=== PATIENT | female | born 1960 | race Caucasian/White ===

== ENCOUNTER 2018-01-27 15:29 | Emergency (ER) | payer OTHER ==
[2018-01-27 15:58] VITALS: BP 153/81; PULSE 79; TEMP 98.9; BMI 28.3
--- NOTE | 2018-01-27 16:10 | PDOC ---
History of Present Illness - General Chief Complaint: Pain, Acute Stated Complaint: PELVIC PAIN Time Seen by Provider: 01/27/18 16:09 Past History - Past Medical History Allergies/Adverse Reactions: Allergies Allergy/AdvReac Type Severity Reaction Status Date / Time No Known Allergies Allergy Verified 10/28/14 20:52 Home Medications: Ambulatory Orders Diclofenac Sodium 50 mg PO BID #14 tablet. 01/27/18 CVA: No COPD: No HTN: Yes - Immunization History Immunization Up to Date: Yes - Suicide/Smoking/Psychosocial Hx Smoking History: Never smoked Have you smoked in the past 12 months: No Information on smoking cessation initiated: No Hx Alcohol Use: No Drug/Substance Use Hx: No Substance Use Type: None *Physical Exam - Vital Signs Last Vital Signs Temp Pulse Resp BP Pulse Ox 98.9 F 79 20 153/81 96 01/27/18 15:51 01/27/18 15:51 01/27/18 15:51 01/27/18 15:51 01/27/18 15:51 Medical Decision Making - Medical Decision Making 01/27/18 20:40 I erroneously signed up for this patient who was actually seen in fast track. I never saw this patient, I never did an exam or evaluation on this patient. She was seen by the mid-level provider in fast track. *DC/Admit/Observation/Transfer Diagnosis at time of Disposition: Pelvic pain in female - Discharge Dispostion Disposition: HOME Condition at time of disposition: Stable - Prescriptions Prescriptions: Diclofenac Sodium 50 mg PO BID #14 tablet. - Referrals Referrals: Tutu Garcia MD [Staff Physician] - - Patient Instructions Printed Discharge Instructions: DI for Pelvic Pain Additional Instructions: Please take medications as prescribed to help relieve your pain. Follow up with [facility] by the END OF THIS WEEK. If you develop any fever, chills, vomiting, diarrhea, or any new or worsening symptoms, please return to the ER. Por favor tome medicamentos segn lo recetado para ayudar a aliviar cardenas dolor. Ignacia un seguimiento con cardenas ginecologo antes del FINAL DE ESTA SEMANA. Si desarrolla fiebre, escalofros, vmitos, diarrea o cualquier sntoma nuevo o que empeora, regrese a la nohemi de emergencias. Print Language: SAMOAN - Post Discharge Activity
--- NOTE | 2018-01-27 16:34 | PDOC ---
History of Present Illness - General Chief Complaint: Pain, Acute Stated Complaint: PELVIC PAIN Time Seen by Provider: 01/27/18 16:09 - History of Present Illness Initial Comments: 01/27/18 16:34 CHIEF COMPLAINT: urinary symptoms HISTORY OF PRESENT ILLNESS: 58 yo F with hx of HTN presents to fast track with suprapubic pain and pain with urination. She reports that the pain is a burning pain when she urinates. She denies any vaginal bleeding or cramping. Patient reports that she is taking naproxen without relief. No recent travel or sick contacts. PAST MEDICAL HISTORY: Denies past medical history FAMILY HISTORY: Denies SOCIAL HISTORY: Denies tobacco, alcohol, illicit drug use. SURGICAL HISTORY: Denies ALLERGIES: No known drug allergies REVIEW OF SYSTEMS General/Constitutional: Denies fever or chills. HEENT: Denies change in vision. Denies ear pain or discharge. Denies sore throat. Respiratory: Denies cough, wheezing, or hemoptysis. Gastrointestinal: Denies nausea, vomiting, diarrhea. Genitourinary: Burning with urination, suprapubic pain radiating to L side. Musculoskeletal: Denies joint or muscle swelling or pain. Denies neck or back pain. Skin and breasts: Denies rash or easy bruising. Neurologic: Denies headache, vertigo, loss of consciousness, or loss of sensation. PHYSICAL EXAM General Appearance: Well-appearing, appropriately dressed. No apparent distress , no intoxication. HEENT: EOMI, PERRLA. No conjunctival pallor. No photophobia, scleral icterus. Respiratory/Chest: Lungs CTAB. Cardiovascular: RRR. S1, S2. Gastrointestinal/Abdominal: Normal bowel sounds. Abdomen soft, non-distended. No tenderness or rebound tenderness. No organomegaly, pulsatile mass, guarding , hernia, hepatomegaly, splenomegaly. Musculoskeletal/Extremities: Normal inspection. FROM of all extremities, normal capillary refill. Pelvis Stable. No CVA tenderness. No tenderness to extremities, pedal edema, swelling, erythema or deformity. Integumentary: Appropriate color, dry, warm. No cyanosis, erythema, jaundice or rash Neurologic: trading specialist II-XII intact. Fully oriented, alert. Appropriate mood/affect. Motor strength 5/5. No appreciable EOM palsy, facial droop or sensory deficit. 01/27/18 16:36 Past History - Past Medical History Allergies/Adverse Reactions: Allergies Allergy/AdvReac Type Severity Reaction Status Date / Time No Known Allergies Allergy Verified 10/28/14 20:52 Home Medications: Ambulatory Orders Diclofenac Sodium 50 mg PO BID #14 tablet. 01/27/18 CVA: No COPD: No HTN: Yes - Immunization History Immunization Up to Date: Yes - Suicide/Smoking/Psychosocial Hx Smoking History: Never smoked Have you smoked in the past 12 months: No Information on smoking cessation initiated: No Hx Alcohol Use: No Drug/Substance Use Hx: No Substance Use Type: None *Physical Exam - Vital Signs Last Vital Signs Temp Pulse Resp BP Pulse Ox 98.9 F 79 20 153/81 96 01/27/18 15:51 01/27/18 15:51 01/27/18 15:51 01/27/18 15:51 01/27/18 15:51 Medical Decision Making - Medical Decision Making 01/27/18 16:35 58 yo F with hx of HTN presents to fast track with suprapubic pain and pain with urination. -UA, Ucx -Azo UA negative for UTI. Will order US to eval for stones. Ultrasound negative. NSAIDS, f/u with OBGYN. Advised patient to take medication as prescribed and follow up with OBGYN this week. Advised patient of signs and symptoms for return to ED. Patient verbalized understanding and agrees to plan. *DC/Admit/Observation/Transfer Diagnosis at time of Disposition: Pelvic pain in female - Discharge Dispostion Disposition: HOME Condition at time of disposition: Stable Admit: No - Prescriptions Prescriptions: Diclofenac Sodium 50 mg PO BID #14 tablet. - Referrals Referrals: Tutu Garcia MD [Staff Physician] - - Patient Instructions Printed Discharge Instructions: DI for Pelvic Pain Additional Instructions: Please take medications as prescribed to help relieve your pain. Follow up with [facility] by the END OF THIS WEEK. If you develop any fever, chills, vomiting, diarrhea, or any new or worsening symptoms, please return to the ER. Por favor tome medicamentos segn lo recetado para ayudar a aliviar cardenas dolor. Ignacia un seguimiento con cardenas ginecologo antes del FINAL DE ESTA SEMANA. Si desarrolla fiebre, escalofros, vmitos, diarrea o cualquier sntoma nuevo o que empeora, regrese a la nohemi de emergencias. Print Language: LAO - Post Discharge Activity
[2018-01-27 16:35] LABS: URINE APPEARANCE SLCLOUDY; URINE BILIRUBIN NEGATIVE (<2.0 mg/dL); URINE COLOR YELLOW; URINE GLUCOSE (UA) NEGATIVE (NEGATIVE); URINE KETONE 1+ (NEGATIVE); URINE LEUK ESTERASE NEGATIVE (NEGATIVE); URINE NITRITE NEGATIVE (NEGATIVE); URINE PROTEIN 2+ (NEGATIVE); URINE UROBILINOGEN NEGATIVE mg/dL (0.2-1.0)
[2018-01-27] MEDS ORDERED: PHENAZOPYRIDINE HCL 100 MG TABLET (FP) PO ONE (16:37)
[2018-01-27 16:38] LABS: EPI CELLS RARE /HPF (FEW); URINE BACTERIA MODERATE /hpf (NONE SEEN); URINE MUCUS RARE
[2018-01-27] MEDS ORDERED: PHENAZOPYRIDINE HCL 100 MG TABLET (FP) ONE (16:38)
--- NOTE | 2018-01-31 07:56 | PDOC ---
Patient Follow-up (Call Back) - Post ED Follow - Up Condition at time of discharge: Stable Disposition at time of original discharge: HOME Reason for Call Back: Abnwl. Microbiology (Patient's urine culture final report shows Escherichia coli. Patient does require antibiotics I have left a message on her son's contact number along the home answering machine) - Disposition Additional Instructions/Notes: Son called back and will go to medicine cabinet to worm picker Macrobid.
== END 2018-01-27 19:08 | disposition home or self-care (01) ==
LOC: JER 15:29 → JERFT 15:29
DX: R10.2 Pelvic and perineal pain (principal); I10 Essential (primary) hypertension
CPT/HCPCS: 76775-TC; 76856-TC; 81003; 81015; 87086; 87186; 99281-25